=== PATIENT | male | born 1950 | race Caucasian/White ===

== ENCOUNTER 2020-09-14 05:45 | Day surgery (SDC) | payer MEDICARE ==
[~2020-09-14] VITALS: Ht 175.3 cm; Wt 80.0 kg
[~2020-09-14 05:45] MED LIST: COLCHICINE0.6 M1 PO; INDOMETHACIN75 MG PO; LISINOPRIL-HCT1 EACH PO; MAPAP500 MG PO; MITIGARE0.6 MG PO; PREDNISONE10 MG PO
--- NOTE | 2020-09-14 08:25 | NUR ---
PT ALERT, ORIENTED AND SUPPORTED BY HIS EGR. PT SEEMS INFORMED, ALL QUESTIONS ASKED ANSWERED. GER WILL REMAIN THRU SURGERY. PRAYER REQUESTED BY PT. GAVE ENCOURAGEMENT AND COMFORT. WILL FOLLOW NEEDED
--- NOTE | 2020-09-14 08:47 | NUR ---
09/14/20 0847 Elsy Da Silva 0840: PT ARRIVES TO PACU FOR RECOVERY. PT RESPONSIVE TO VERBAL AND TACTILE STIMULI. VSS, O2 >98% ON 6L OXYGEN. DENIES PAIN AND NAUSEA 0845: PT AWAKE AND ALERT, ANSWERS QUESTIONS APPROPRIATELY. VSS, RESP EVEN AND UNALBORED. OXYGEN TURNED OFF AND MASK REMOVED. O2 SATS REMAIN STABLE >98%. DENIES PAIN AND NAUSEA. COUGHS INTERMITTENTLY
--- NOTE | 2020-09-14 09:18 | NUR ---
PATIENT BACK TO DAYSURGERY ROOM, REPORT FROM JEWEL LEWIS. PATIENT AWAKE, NO PAIN OR NAUSEA. SNACKS PROVIDED. CALL LIGHT WITHIN REACH. NO OTHER NEEDS AT THIS TIME.
--- NOTE | 2020-09-14 10:33 | NUR ---
PATIENT TAKEN TO FRONT ENTRANCE FOR RIDE BY UPON DISCHARGE. PATIENT DENIES PAIN OR NAUSEA. PERIPAD CLEAN, DRY, AND INTACT. PATIENT AND VERBALIZED UNDERSTANDING OF DC INTRUCTIONS. PATIENT ENCOURAGED MORE THAN ONCE TO VOID BEFORE DISCHARGE AND REFUSED.
--- NOTE | 2020-09-18 14:31 | OR ---
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 POSTOPERATIVE DIAGNOSIS: Likely rectal carcinoma with invasion in the right anterior lateral aspect. PROCEDURES: 1. Exam under anesthesia. 2. Rigid proctoscopy. 3. Transanal debulking of low rectal villous tumor. ANESTHESIA: General endotracheal; Deisy Back CRNA and local 10 mL of 0.25% Marcaine with epinephrine. INDICATION: This 70-year-old white man, who is a patient of Dr. Justin Kay and presented to Dr. Kay with rectal bleeding. The patient had been averse to rectal examination or even colonoscopy over the many years. It had been recommended by Dr. Kay. Clinical examination showed a soft neoplasm emanating from the anal verge. A CT scan had been performed, which showed a bulky tumor of the rectum. No evidence of disease more proximally and no evidence of metastatic disease. Examination in the office setting showed a friable villous tumor, which was biopsied and pathology showed only villous adenoma. Additional biopsy in the office setting with large bulky Forceps, biopsies continued to show no sign of invasion. Clinical examination showed the neoplasm to be soft and not particularly fixed to the pelvic sidewall in any way. On the basis of this discordant finding pathologically, he underwent colonoscopy, which did not show obstruction of the rectum and passage of the scope to the cecum was clearly accomplished showing no proximal lesions. This bulky soft neoplasm was multiply biopsied as deep as possible, but pathology continued to show no sign of invasive malignancy, only carcinoma in situ. For this lesion to represent invasive rectal carcinoma, I would generally recommend neoadjuvant radiation therapy for debulking and down staging and ultimately surgical resection. The extent of the lesion is to the dentate line and quite likely this would require an abdominoperineal resection. Electronically Signed By: DAMION COTTO MD 09/18/20 1431 PATIENT NAME: JADA WEBSTER OPERATIVE REPORT DATE OF : 54 REPORT #: [id number] PHYSICIAN: DAMION COTTO MD PCP: JUSTIN KAY MD REPORT IS CONFIDENTIAL AND NOT TO BE RELEASED WITHOUT AUTHORIZATION [facility] [address], [place] [address] Signed Considering that 3 aggressive biopsies have showed no sign of invasive carcinoma and a villous adenoma with carcinoma in situ would be optimally resected. Transanally, he is here for that purpose today. The patient and his understand the risks of bleeding, infection, possibility that this does represent invasive cancer for which additional therapy as previously described would be recommended. Of note, he was found to have a preoperative hematocrit of 21 and underwent a 2 unit blood transfusion yesterday with a preoperative hematocrit now 29. FINDINGS: With good relaxation and so forth, the tumor could be more fully identified as to its general location. This was dominantly anterior and right lateral. It was not particularly circumferential, particularly the left side appeared to be spared. The extent of the tumor proximally was just below the end of my examining finger, which is about 8 cm. Debulking of the friable bulky tumor was undertaken, but quite clearly this represents an invasive cancer into the anterior and right aspect. Though not particularly fixed, there was dense firm fibrotic base to this lesion and complete extirpation was not forthcoming. Debulking has been undertaken. He does not have imminent obstruction. Referral for chemo radiation neoadjuvant therapy will be undertaken ultimately, hopefully allowing for curative resection. DESCRIPTION OF PROCEDURE: The patient was brought to the operating room, given a general endotracheal anesthetic and placed in a prone alissa-knife position with careful padding of head, neck, and other areas. Digital rectal examination showed soft and friable tumor extending to the dentate line. The dominant portion of the tumor is in the right lateral aspect. Rigid proctoscopy was undertaken, which showed the lesion to be quite bulky and quite friable. Passage beyond the mid rectum with the rigid proctoscope was not forthcoming and further attempts to do so were abandoned. A rectal retractor was placed and examination undertaken digitally, which showed friability of villous tumor anteriorly and to a small extent to the left, dominantly to the right side. Oozing of blood was quite notable with manipulation of the area and debulking with English forceps was undertaken after injecting Marcaine with epinephrine in the submucosal areas beginning at the dentate line anterior and laterally. It became clear with debulking that this represented an invasive tumor into the jany-rectal tissues and quite clearly not simply a villous adenoma with carcinoma in situ. Debulking was undertaken to a reasonable extent though there remains some tumor. Further dissection more deeply was of no benefit and was not pursued any further. Irrigation was undertaken copiously. The rectum and surrounding tissue were packed with a Gel-Foam, wrapped in bacitracin. There was no sign of ongoing bleeding. He was Electronically Signed By: DAMION COTTO MD 09/18/20 1431 PATIENT NAME: JADA WEBSTER OPERATIVE REPORT DATE OF : 54 REPORT #: [id number] PHYSICIAN: DAMION COTTO MD PCP: JUSTIN KAY MD REPORT IS CONFIDENTIAL AND NOT TO BE RELEASED WITHOUT AUTHORIZATION [facility] [address] [place] [place] [address] Signed ultimately extubated, after being returned to the supine position taken to recovery room in good condition. Blood loss was about 20 mL. Sponge, needle, and instrument count were reported as correct x3. MD GAVINO Heart/JAQUANL /[id number] cc: MD Justin Brewster MD Juno Choe, MD, PH.D. Copies: CRYSTAL BARRERA MD, JONATHAN MD CHOE, JUNO ~ Electronically Signed By: DMAION COTTO MD 09/18/20 1431 PATIENT NAME: JADA WEBSTER OPERATIVE REPORT DATE OF : 54 REPORT #: [id number] PHYSICIAN: DAMION COTTO MD PCP: JUSTIN KAY MD REPORT IS CONFIDENTIAL AND NOT TO BE RELEASED WITHOUT AUTHORIZATION
--- NOTE | 2020-09-22 11:08 | PATH ---
[facility] [address] [place], [place] [address] Signed THIS IS AN ADDENDUM REPORT SPECIMEN(S): A RECTAL TUMOR SPECIMEN SOURCE: A. RECTAL TUMOR CLINICAL HISTORY: Carcinoma in situ of rectum FINAL PATHOLOGIC DIAGNOSIS: Rectal tumor, biopsy: - Invasive rectal adenocarcinoma, moderately differentiated. - See comment. COMMENT: The vast majority of the specimen is comprised of a tubular adenoma with high-grade dysplasia. Foci of invasive carcinoma are present, demonstrating invasion into at least the lamina propria/muscularis mucosa, but tangential nature of the biopsied fragments limits interpretation. As part of [facility]' Quality Improvement Program, this case was reviewed by another member of our pathology staff. Microsatellite instability (MSI) testing by IHC will be reported in an addendum. NRT:BES:cml:C1NR MICROSCOPIC EXAMINATION: Histologic sections of all submitted blocks are examined by light microscopy. These findings, together with the gross examination, support the pathologic diagnosis. GROSS DESCRIPTION: The specimen, labeled "Jada Webster," is received in formalin and consists of 5.5 x 5.0 x 0.9 cm aggregate of deep-red soft tissue fragments. The specimen is entirely submitted in cassettes (A1-A6). FB (under the direct supervision of a pathologist) The Gross Description was prepared using a voice recognition system. The report was reviewed for accuracy; however, sound-alike word errors, addition and/or deletions may occur. If there is any question about this report, please contact Client Services. PATIENT NAME: JADA WEBSTER PATHOLOGY DATE OF : 54 REPORT #: [id number] PHYSICIAN: ROME CRAMER PCP: JUSTIN POTTER MD REPORT IS CONFIDENTIAL AND NOT TO BE RELEASED WITHOUT AUTHORIZATION [facility] [address] [place] [id number] Signed PERFORMING LABORATORY: The technical component was performed by [facility], [address] [place] [id number] (Load Checker: Iraida Crawford MD; CLIA# [id number]). [facility], [address] [address] (CLIA# [id number]). COMMENT: Tumor cells show no loss of nuclear expression of MMR proteins. This correlates with a low probability of microsatellite instability. However, if there is a high clinical suspicion for Shore syndrome (hereditary non-polyposis colorectal carcinoma syndrome) in this patient, additional testing should be considered. Please contact [facility] if such testing is indicated. NAL:cml ADDITIONAL NOTES: Immunohistochemical and/or in situ hybridization studies were performed on this case with the appropriate positive controls that react as expected. This test was developed and its performance characteristics determined by [facility]. It has not been cleared or approved by the U.S. Food and Drug Administration. The FDA has determined that such clearance or approval is not necessary. This test is used for clinical purposes. It should not be regarded as investigational or for research. [facility] is certified under the Clinical Laboratory Improvement Amendments of 1988 (CLIA) as qualified to perform high complexity clinical laboratory testing. REASON FOR ADDENDUM: To add results of additional testing. ADDENDUM PATHOLOGIC DIAGNOSIS: Invasive adenocarcinoma, rectum, microsatellite instability testing by IHC: - MLH1: Intact nuclear expression. - MSH2: Intact nuclear expression. - MSH6: Intact nuclear expression. - PMS2: Intact nuclear expression. INTERPRETATION: Normal pattern. ADDENDUM MICROSCOPIC EXAMINATION: A panel of four antibodies is selected which will detect 95% of microsatellite PATIENT NAME: JADA WEBSTER PATHOLOGY DATE OF : 54 REPORT #: [id number] PHYSICIAN: ROME PATHOLOGY PCP: JUSTIN POTTER MD REPORT IS CONFIDENTIAL AND NOT TO BE RELEASED WITHOUT AUTHORIZATION [facility] [address] [place] [id number] Signed unstable carcinomas. Testing is performed at the request of Cynthia Crowley M.D. Block: A2. Recut HE slide is prepared from the block. The presence of neoplastic glands and non-neoplastic internal control glands or stroma is confirmed. Internal control cells for MLH1, MSH2, PMS2 and MSH6 are positive. Neoplastic gland cells show the following: - MLH1: Positive. - MSH2: Positive. - MSH6: Positive. - PMS2: Positive. NAL:cml [facility] [place] [place] [facility], [address] [address] (CLIA# [id number]). Diagnostician: Cynthia Crowley MD Pathologist Electronically Signed 09/22/2020 Copies: ~ PATIENT NAME: JADA WEBSTER PATHOLOGY DATE OF : 54 REPORT #: [id number] PHYSICIAN: ROME CRAMER PCP: JUSTIN POTTER MD REPORT IS CONFIDENTIAL AND NOT TO BE RELEASED WITHOUT AUTHORIZATION
== END 2020-09-14 10:20 | disposition home or self-care (01) ==
LOC: DS 05:45
PROVIDERS: ATTEND Surgery
PROC: 0DBP8ZZ Excision of Rectum, Via Natural or Artificial Opening Endoscopic (ICD-10-PCS; principal; 2020-09-14 06:45)
DX: C20 Malignant neoplasm of rectum (principal); I10 Essential (primary) hypertension; D64.9 Anemia, unspecified; E55.9 Vitamin D deficiency, unspecified
CPT/HCPCS: 00902; 88305; 88341; 88342; J0330; J0690; J1644; J2001; J2250; J2704; J7121

== ENCOUNTER 2020-10-12 06:46 | Day surgery (SDC) | payer MEDICARE ==
[~2020-10-12] VITALS: Ht 175.3 cm; Wt 77.3 kg
--- NOTE | 2020-10-12 10:03 | NUR ---
PATIENT BACK TO ROOM APPEARS DROWSY, SATURATION 98% RA. PATIENT EATING SNACKS AND DRINKING WATER. RATES PAIN 5/10. GIRLFRIEND AT BEDSIDE. DRESSING C/D/I, SMALL AMOUNT OF RED DRAINAGE AT UNBILICUS.
--- NOTE | 2020-10-12 10:30 | NUR ---
10/12/20 1030 Juana Meeks 1021-PATIENT ARRIVED TO PACU AWAKE ON RA RR EVEN. DENIES PAIN OR NAUSEA. DRESSING TO LEFT CHEST CDI IVF INFUSING. SR. HOB ELEVATED. 1030-XRAY AT BEDSIDE
[2020-10-12] MEDS ORDERED: IBUPROFEN600 MG PO (10:33)
[2020-10-12] MEDS ORDERED: ACETAMINOPHEN500 MG PO (10:34)
[2020-10-12] MEDS ORDERED: OXYCODON-ACETA1 EAC2 PO (10:34)
--- NOTE | 2020-10-12 14:35 | NUR ---
PT HERE EARLY BEFORE CHECK IN TIME. HE SEEMS RELAXED, ALERT AND ORIENTED. ALL QUESTIONS ASKED ANSWERED. HIS GER WILL SHOE STAMPER FOLLOW ING DC. PT REQUESTED PRAYER, WILL FOLLOW
--- NOTE | 2020-10-14 12:37 | OR ---
[facility] [address] [place], [place] [address] Signed DATE OF OPERATION: 10/12/2020 SURGEON: Damion Cotto MD PREOPERATIVE DIAGNOSIS: Rectal cancer anticipating neoadjuvant chemoradiation therapy. POSTOPERATIVE DIAGNOSIS: Rectal cancer anticipating neoadjuvant chemoradiation therapy. PROCEDURES: 1. Left subclavian Port-A-Cath placement (Bard port catheter). 2. Surgeon-directed fluoroscopy. ANESTHESIA: Local with monitored anesthesia care, Gold Julian CRNA including 20 mL of 0.25% Marcaine with epinephrine. INDICATION: This is a 70-year-old white man, who is a patient of Dr. Justin Kay and has been diagnosed with rectal cancer. He is admitted to undergo Port-A-Cath device anticipating chemotherapy and pelvic radiation therapy also. He understands the risks of placement of catheter including, but not limited to, bleeding, infection, pneumothorax, dislodgement, malposition, rotation, and other unforeseen complications. He understands this and wished to proceed. Of special note, the patient requested a left subclavian approach rather than the right internal jugular approach as had been anticipated. FINDINGS: Easy access of the left subclavian vein was noted with dark nonpulsatile blood. The catheter was ultimately placed with the tip in the superior vena cava. Good function was noted once catheter was placed. DESCRIPTION OF PROCEDURE: The patient was brought to the operating room, placed in the supine position and given intravenous sedation. Preoperative antibiotic Ancef was given. Sequential compression device stockings were used and heparin subcutaneously administered. The upper torso from mandible to nipples was clipped and ultimately prepared with a chlorhexidine solution and draped sterilely. 0.25% Marcaine with epinephrine was injected in the left Electronically Signed By: DAMION COTTO MD 10/14/20 1237 PATIENT NAME: JADA WEBSTER OPERATIVE REPORT DATE OF : 54 REPORT #: [id number] PHYSICIAN: DAMION COTTO MD PCP: JUSTIN KAY MD REPORT IS CONFIDENTIAL AND NOT TO BE RELEASED WITHOUT AUTHORIZATION [facility] [address] [place], [place] [address] Signed infraclavicular space. Using a Seldinger technique, we enclosed needle and 3 mL syringe from a Bard port catheter kit. The left subclavian vein was easily accessed showing non-pulsatile dark red blood. A flexible J-wire was passed down the needle and the needle was removed. Intraoperative fluoroscopy confirmed the wire to be in the right heart system. Additional local anesthetics were injected transversely a few centimeters below the puncture site. A transverse incision was made with a #15 blade. An electrocautery used to help develop a pocket inferiorly. Blunt dissection was used. A flushed Bard port catheter port was partially secured to the pectoralis fascia with 2-0 Vicryl suture. The area from where the wire exited the infraclavicular space was incised with an #11 blade, subsequently dilator and peel-away introducer passed over the wire. The peel-away sheath introducer was allowed to remain in place and the wire and dilator removed showing vigorous nonpulsatile dark retrograde bleeding. Previously inspected Groshong-type catheter was passed down the sheath and this was passed without resistance or problem. Peel-away sheath introducer was removed stabilizing the catheter during the course of the maneuver. Aspiration with heparinized saline on the catheter showed dark nonpulsatile blood and easy flushing. The patient was taken into a neutral position from a Trendelenburg position and fluoroscopy once again undertaken. Catheter was withdrawn under fluoroscopic control to be situated in the superior vena cava. Irrigation with contrast showed good visualization of the catheter. The catheter was flushed with heparinized saline once again. A tunneling device was used to deliver the catheter to the pocket. The catheter was trimmed to appropriate length and attached to the port device and secured with the enclosed collar device per manufacture's instructions. The port was then secured to the pectoralis fascia with interrupted 2-0 Vicryl suture. Access of the catheter with an angled Rodríguez needle was undertaken showing an easy withdrawal of blood and easy flush with heparinized saline. Contrast was used to more clearly affirm the position of the catheter as well as the configuration of the catheter in relation to the port itself, which appeared to be without kink or other problem. The skin was then closed with interrupted 2-0 Vicryl, the subcutaneous layer and the running subcuticular 3-0 Vicryl for the skin. Access of the catheter once again with an angled Rodríguez needle percutaneously continued to show good withdrawal of blood and easy flushing with heparinized saline. Steri-Strips were applied to the wounds after closure including the puncture site and Electronically Signed By: DAMION COTTO MD 10/14/20 1237 PATIENT NAME: JADA WEBSTER OPERATIVE REPORT DATE OF : 54 REPORT #: [id number] PHYSICIAN: DAMION COTTO MD PCP: JUSTIN KAY MD REPORT IS CONFIDENTIAL AND NOT TO BE RELEASED WITHOUT AUTHORIZATION [address] [address] Signed the Acticoat dressing then applied. The patient was ultimately taken to recovery room in good condition and suffered no complications. Sponge, needle, and instrument counts reported as correct x3. MD GAVINO Heart/BEN /[id number] cc: MD Justin Brewster MD Juno Choe, MD, PH.D. Copies: CRYSTAL BARRERA MD, JONATHAN MD CHOE, JUNO ~ Electronically Signed By: DAMION COTTO MD 10/14/20 1237 PATIENT NAME: JADA WEBSTER OPERATIVE REPORT DATE OF : 54 REPORT #: [id number] PHYSICIAN: DAMION COTTO MD PCP: JUSTIN KAY MD REPORT IS CONFIDENTIAL AND NOT TO BE RELEASED WITHOUT AUTHORIZATION
== END 2020-10-12 11:10 | disposition home or self-care (01) ==
LOC: DS 06:46
PROVIDERS: ATTEND Surgery
PROC: B518ZZA Fluoroscopy of Superior Vena Cava, Guidance (ICD-10-PCS; principal; 2020-10-12 09:00)
PROC: 02HV33Z Insertion of Infusion Device into Superior Vena Cava, Percutaneous Approach (ICD-10-PCS; principal; 2020-10-12 09:00)
PROC: 0JH60WZ Insertion of Totally Implantable Vascular Access Device into Chest Subcutaneous Tissue and Fascia, Open Approach (ICD-10-PCS; principal; 2020-10-12 09:00)
DX: C20 Malignant neoplasm of rectum (principal); I10 Essential (primary) hypertension; M19.90 Unspecified osteoarthritis, unspecified site; Z79.899 Other long term (current) drug therapy; Z79.52 Long term (current) use of systemic steroids; Z20.822 Contact with and (suspected) exposure to COVID-19
CPT/HCPCS: 00532; 36415; 71045; 77001; 80053; 82247; 82465; 83615; 84100; 84478; 84550; 85025; C1788; J0690; J1644; J1885; J2001; J2405; J2704; J3010; J7121

== ENCOUNTER → 2021-05-03 | Day surgery (SDC) | payer MEDICARE ==
[~2021-05-03] VITALS: Ht 170.2 cm; Wt 79.0 kg
[~2021-05-03] MED LIST changes: +ACETAMINOPHEN500 MG PO; +IBUPROFEN600 MG PO; +OXYCODON-ACETA1 EAC2 PO
--- NOTE | 2021-05-03 12:03 | NUR ---
HAS RETURNED FROM ENDOSCOPY WITH ROMA LEWIS. DR LINDSEY WILL BE IN TO TALK WITH PT. NO SEDATION WILL BE DCD.
--- NOTE | 2021-05-03 12:53 | NUR ---
1230 alex to talk to pt gave dcd instructions by dr gonzales. pt dcd amb.
--- NOTE | 2021-05-03 19:28 | OR ---
[facility] [address] [place], [place] [address] Signed DATE OF OPERATION: 05/03/2021 SURGEON: Damion Cotto MD PREOPERATIVE DIAGNOSIS: History of advanced rectal adenocarcinoma status post neoadjuvant chemoradiation therapy. POSTOPERATIVE DIAGNOSIS: Persistent tumor of low rectum to the level of dentate line, but much improved. PROCEDURE: Flexible sigmoidoscopy (to 40 cm) with biopsies of rectum and rectosigmoid ANESTHESIA: None. INDICATION: This 70-year-old white man is a patient initially of Dr. Kay. He was found to have a rectal mass in August of 2020, He underwent colonoscopy and multiple biopsies by me ultimately confirming advanced rectal carcinoma penetrating into the bladder wall and prostate. He was evaluated thoroughly by Dr. Holland and Dr. Barrera and ultimately Dr. Debra De Leon at [facility] anticipating complex perineal resection after neoadjuvant chemoradiation therapy. He has no evidence of metastatic disease. He has undergone neoadjuvant chemoradiation therapy under the direction of Dr. Holland and Dr. Barrera and a flexible sigmoidoscopy was requested at this time, anticipating possible resection in the near future. Given the limited evaluation necessary, a bowel prep, but no IV sedation was recommended and the patient understands the risk of flexible sigmoidoscopy with biopsy including but not limited to bleeding, infection, perforation. FINDINGS: The prep was excellent. Complete colonoscopy was undertaken to approximately 40 cm without discomfort. The area of prior endoscopic tattooing was identified proximally. The tumor itself was easily palpable at the dentate line and although still present was vastly smaller than previously. Tumor extended from approximately 10 cm from the anal verge to the dentate line itself. Circumferential neoplasm was noted. DESCRIPTION OF PROCEDURE: The patient was brought to the endoscopy suite and placed in the lateral decubitus position. Cardiopulmonary monitoring was undertaken, but no intravenous sedation was administered. Digital rectal examination was undertaken showing neoplasia in the anal Electronically Signed By: DAMION COTTO MD 05/03/21 192 PATIENT NAME: JADA WEBSTER OPERATIVE REPORT DATE OF : 54 REPORT #: [id number] PHYSICIAN: DAMION COTTO MD PCP: CRYSTAL BARRERA MD REPORT IS CONFIDENTIAL AND NOT TO BE RELEASED WITHOUT AUTHORIZATION [facility] [address] [place], [place] [address] Signed canal more proximally and circumferential in its location. Flexible video colonoscope was passed in the anal canal and rectum identifying neoplasm obviously and beyond that without problem to the rectosigmoid and the sigmoid and to the left colon up to about 40 cm. At that point, he was having some discomfort, so no further passage of the scope was deemed necessary. The scope was withdrawn to the area of prior endoscopic tattooing, which was at about 12-14 cm. Biopsies were taken there of normal-appearing mucosa. The scope was withdrawn to approximately 8-10 cm, which was quite obviously involved with neoplasia and biopsies were obtained. Further withdrawal through the low rectum and allowed for biopsies at the dentate line which were quite obviously positive also. The scope was then removed. The patient was taken to his room anticipating prompt discharge. CONCLUSION DIAGNOSIS: Persistent neoplasia of rectum, but much improved following neoadjuvant chemoradiation therapy. PLAN: He will return to the ongoing care of Dr. Barrera and Dr. Holland and ultimately Dr. Debra De Leon at [facility] for advanced multiorgan resection. MD GAVINO Heart/JAQUANL /[id number] cc: MD Crystal Saab MD Dr. Kim Lu at [facility] Manjinder Holland MD, PH.D. Copies: JUSTIN KAY MD Electronically Signed By: DAMION COTTO MD 05/03/21 1928 PATIENT NAME: JADA WEBSTER OPERATIVE REPORT DATE OF : 54 REPORT #: [id number] PHYSICIAN: DAMION COTTO MD PCP: CRYSTAL BARRERA MD REPORT IS CONFIDENTIAL AND NOT TO BE RELEASED WITHOUT AUTHORIZATION [facility] [address] [place] [address] Signed CRYSTAL BARRERA MD, JUNO ~ Electronically Signed By: DAMION COTTO MD 05/03/21 1928 PATIENT NAME: JADA WEBSTER OPERATIVE REPORT DATE OF : 54 REPORT #: [id number] PHYSICIAN: DAMION COTTO MD PCP: CRYSTAL BARRERA MD REPORT IS CONFIDENTIAL AND NOT TO BE RELEASED WITHOUT AUTHORIZATION
--- NOTE | 2021-05-08 15:21 | PATH ---
[facility] [address] [place], [place] [address] Signed SPECIMEN(S): A COLON BIOPSY AT 12 CM SPECIMEN(S): B COLON BIOPSY AT 10 CM SPECIMEN(S): C COLON BIOPSY AT DENTATE LINE SPECIMEN SOURCE: A. COLON BIOPSY AT 12 CM B. COLON BIOPSY AT 10 CM C. COLON BIOPSY AT DENTATE LINE CLINICAL HISTORY: No preop or clinical information is given on requisition. FINAL PATHOLOGIC DIAGNOSIS: A. Colon, 12 cm, biopsy: - Colonic mucosa with focal hyperplastic changes. - Negative for dysplasia or malignancy. B. Colon, 10 cm, biopsy: - Focal residual invasive adenocarcinoma with treatment effect. C. Colon at dentate line, biopsy: - Residual invasive adenocarcinoma with treatment effect. COMMENT: As part of [facility] quality improvement program, this case was reviewed by another member of our pathology staff. Mismatch repair (MMR) testing by IHC was previously performed and reported (see [id number], 09/22/20), demonstrating a normal pattern with intact nuclear expression of MLH1, MSH2, MSH6, and PMS2. A diagnostic alert was initiated by Dr. Crowley on 05/08/21 (Dr. Sandoval's office to be called by [facility] Client Services department). NAL:cml:C1NR MICROSCOPIC EXAMINATION: Histologic sections of all submitted blocks are examined by light microscopy. These findings, together with the gross examination, support the pathologic diagnosis. GROSS DESCRIPTION: Three specimens are received in three containers, labeled "DK." A. The specimen, labeled "DK, #1," and designated on the requisition "colon biopsy at 12 cm," is received in formalin and consists of one elongated, finn soft tissue fragment that measures 0.7 cm in PATIENT NAME: JADA WEBSTER PATHOLOGY DATE OF : 54 REPORT #: [id number] PHYSICIAN: ROME PATHOLOGY PCP: CRYSTAL BARRERA MD REPORT IS CONFIDENTIAL AND NOT TO BE RELEASED WITHOUT AUTHORIZATION [facility] [address] [place], [place] [address] Signed greatest dimension. The specimen is entirely submitted in cassette (A1). B. The specimen, labeled "DK, #2 (10 cm)," and designated on the requisition "colon biopsy 10 cm," is received in formalin and consists of one finn soft tissue fragment that measures 0.5 cm in greatest dimension. The specimen is entirely submitted in cassette (B1). C. The specimen, labeled "DK, #3," and designated on the requisition "colon biopsy dentate line," is received in formalin and consists of multiple finn soft tissue fragments that measure less than 0.1 up to 0.3 cm in greatest dimension. The specimen is entirely submitted in cassette (C1). AI (under the direct supervision of a pathologist) The Gross Description was prepared using a voice recognition system. The report was reviewed for accuracy; however, sound-alike word errors, addition and/or deletions may occur. If there is any question about this report, please contact Client Services. ADDITIONAL NOTES: Immunohistochemical and/or in situ hybridization studies were performed on this case with the appropriate positive controls that react as expected. This test was developed and its performance characteristics determined by [facility]. It has not been cleared or approved by the U.S. Food and Drug Administration. The FDA has determined that such clearance or approval is not necessary. This test is used for clinical purposes. It should not be regarded as investigational or for research. [facility] is certified under the Clinical Laboratory Improvement Amendments of 1988 (CLIA) as qualified to perform high complexity clinical laboratory testing. This assay has not been validated for specimens that have been decalcified. The technical component was performed by [facility], [address] [place] [id number] (Industrial Cleaning Technician: Iraida Crawford MD; CLIA# [id number]). Professional interpretation was performed by [facility], [facility], [address] [place] [address] (CLIA# [id number]). PERFORMING LABORATORY: The technical component was performed by [facility], [address] [place] [address] (Industrial Cleaning Technician: Iraida Crawford MD; CLIA# [id number]). Professional interpretation was performed by [facility], [facility], [address] [place] [address] (CLIA# [id number]). PATIENT NAME: JADA WEBSTER PATHOLOGY DATE OF : 54 REPORT #: [id number] PHYSICIAN: ROME CRAMER PCP: CRYSTAL BARRERA MD REPORT IS CONFIDENTIAL AND NOT TO BE RELEASED WITHOUT AUTHORIZATION [facility] [address] [place] [id number] Signed Diagnostician: Cynthia Crowley MD Pathologist Electronically Signed 05/08/2021 Copies: ~ PATIENT NAME: JADA WEBSTER PATHOLOGY DATE OF : 54 REPORT #: [id number] PHYSICIAN: ROME CRAMER PCP: CRYSTAL BARRERA MD REPORT IS CONFIDENTIAL AND NOT TO BE RELEASED WITHOUT AUTHORIZATION
== END ==
LOC: OPS 11:05 → DS 13:00
PROVIDERS: ATTEND Surgery
PROC: 0DBN8ZZ Excision of Sigmoid Colon, Via Natural or Artificial Opening Endoscopic (ICD-10-PCS; 2021-05-03)
PROC: 0DBP8ZZ Excision of Rectum, Via Natural or Artificial Opening Endoscopic (ICD-10-PCS; principal; 2021-05-03 12:00)
DX: C20 Malignant neoplasm of rectum (principal); C19 Malignant neoplasm of rectosigmoid junction; I10 Essential (primary) hypertension

== ENCOUNTER 2021-08-30 05:35 | Day surgery (SDC) | payer MEDICARE ==
[~2021-08-30] VITALS: Ht 170.2 cm; Wt 84.1 kg
[~2021-08-30 05:35] MED LIST changes: +PREDNISONE20 MG PO
--- NOTE | 2021-08-30 08:50 | NUR ---
08/30/21 0850 Brina Cherry 0856 PATIENT ARRIVES TO PACU AWAKE. RESP EVEN AND UNLABORED, ROOM AIR SATS >95%. PATIENT DENIES PAIN OR NAUSEA.
[2021-08-30] MEDS ORDERED: OXYCODON-ACETA1 EAC2 PO (09:09)
[2021-08-30] MEDS ORDERED: ACETAMINOPHEN500 MG PO (09:09)
[2021-08-30] MEDS ORDERED: IBUPROFEN600 MG PO (09:09)
--- NOTE | 2021-08-30 09:59 | NUR ---
PT ALERT, ORIENTED AND HERE TO HAVE EXISTING PORTACATH REPLACED. PT SEEMS INFORMED, REQUESTED PRAYER. [place] WILL COME AT [place]. GAVE BLESSING
--- NOTE | 2021-08-30 10:27 | NUR ---
STEADY ON FEET WITH ONE PERSON STAND BY ASSIST AND CANE FOR AMBULATION TO BR. VOIDS LARGE UNMEASURED URINE. CONTINUES TO DENY NAUSEA. MEDICATED FOR INCREASING PAIN PER EMAR. PT EDUCATED ON LOCAL ANESTHETIC WEARING OFF. ASSISTED PT WITH DRESSING AND REVIEWED DISCHARGE INSTRUCTIONS WITH PT AND SON AT [place].
--- NOTE | 2021-09-02 14:20 | OR ---
[facility] [address] [place], [place] [address] Signed DATE OF OPERATION: 08/30/2021 SURGEON: Damion Cotto MD PREOPERATIVE DIAGNOSES: 1. Locally highly invasive rectal carcinoma, ongoing chemo and radiation therapy. 2. Dysfunctional left subclavian Port-A-Cath device. POSTOPERATIVE DIAGNOSES: 1. Locally highly invasive rectal carcinoma, ongoing chemo and radiation therapy. 2. Dysfunctional left subclavian Port-A-Cath device. PROCEDURE: 1. Explantation of left subclavian Port-A-Cath device. 2. Right internal jugular placement of Port-A-Cath device (Bard port catheter). 3. Ultrasound guidance for vascular access, right internal jugular vein. 4. Surgeon-directed fluoroscopy. ANESTHESIA: General LMA; Gold Julian CRNA and local 10 mL of 0.25% Marcaine with epinephrine. INDICATION: This 71-year-old white man is a patient of Vlad Kiser and was discovered to have a very advanced rectal carcinoma for which he has undergone partial excision, but additionally chemo and radiation therapy under the direction of Dr. Saenz and Dr. Barrera. Direct penetration into the prostate gland has been noted. He has been undergoing chemotherapy and radiation therapy. 5-FU infusional therapy has been mainstay of his recent therapy but he has been found to have dysfunction of the catheter for prolonged infusion. Alteplase was infused, which allowed for withdrawal of blood and infusion of chemotherapy, but in the supine position, the catheter is dysfunctional and does not allow for continuous infusion of 5-FU, which is needed on a prolonged basis. Explantation of the catheter is recommended as well as replacement with a Port-A-Cath. The risks of bleeding, infection, pneumothorax, and other unforeseen complications have been reviewed in detail. He understands and wished to proceed. FINDINGS: Explantation of left subclavian port was without problem. Complete removal of the port and the catheter was noted. There was no evidence of fibrin sheath or thrombus within the catheter or the port. There was no backbleeding from the insertion site. Closure of the wound was without problem. Electronically Signed By: DAMION COTTO MD 09/02/21 1420 PATIENT NAME: JADA WEBSTER OPERATIVE REPORT DATE OF : 54 REPORT #: [id number] PHYSICIAN: DAMION COTTO MD PCP: VLAD KISER PA-C REPORT IS CONFIDENTIAL AND NOT TO BE RELEASED WITHOUT AUTHORIZATION [facility] [address] [place] [address] Signed Easy identification of right internal jugular vein was undertaken with ultrasound guidance. Access was without problem and placement of the right internal jugular Port-A-Cath device accomplished without problem and with good function of the catheter at conclusion. A postprocedure chest x-ray is pending. DESCRIPTION OF PROCEDURE: The patient was brought to the operating room, placed in supine position with arms at the side and given a general LMA type anesthetic. Preoperative antibiotic, Ancef was given. Sequential compression device stockings were used and heparin subcutaneously administered. The upper torso was clipped and prepared with chlorhexidine solution and draped sterilely with the face turned towards the left. Examination of the left chest wall showed the incision were well healed and the port was easily identified. A few mL of 0.25% Marcaine with epinephrine was injected along the previous incision site. An incision was incised with a 15 blade. Dissection carried through the subcutaneous tissue with electrocautery. The fibrous capsule of the port was easily incised and the port identified and found to have no evidence of infection or other problem. It was easily explanted completely. The catheter fibrous track was secured with a hemostat and oversewn with 2-0 Vicryl, though there was no backbleeding. The wound was then closed with interrupted 2-0 Vicryl and a running subcuticular 3-0 Vicryl for the skin. Steri-Strips were applied and subsequently an Opsite dressing. Attention was turned towards replacement of the catheter through the right internal jugular approach. A [employer] ultrasound device was used. The patient was in mild Trendelenburg position. Examination of the right neck showed a conventional anatomy including internal jugular vein and carotid artery. Local anesthetic was injected over the right sternocleidomastoid muscle inferior to the crossing external jugular vein. Under ultrasonographic guidance, needle was passed to the internal jugular and easily accessed showing dark nonpulsatile blood. A flexible J-wire was passed down the needle and the needle was removed. Ultrasound confirmed the wire to be in the internal jugular vein. Fluoroscopy was used to confirm the wire in the right heart system. Local anesthetic was injected transversely over the right pectoral area. A transverse incision was made and electrocautery used to dissect through the subcutaneous tissue and create a pocket inferiorly. A previously inspected and irrigated Bard port device was partially secured to the pectoralis fascia. Attention was turned towards the puncture site. The wire exiting from the right neck was stabilized and the skin incised with an 11 blade. A dilator and subsequently dilator and peel-away introducer passed over the wire. The wire and dilator were removed showing vigorous retrograde nonpulsatile dark backbleeding. The previously inspected Groshong-tip catheter was passed down the introducer and the peel-away Electronically Signed By: DAMION COTTO MD 09/02/21 0738 PATIENT NAME: JADA WEBSTER OPERATIVE REPORT DATE OF : 54 REPORT #: [id number] PHYSICIAN: DAMION COTTO MD PCP: VLAD KISER PA-C REPORT IS CONFIDENTIAL AND NOT TO BE RELEASED WITHOUT AUTHORIZATION [facility] [address] [place] [address] Signed introducer removed. The patient was then placed in the neutral position. Aspiration on the catheter showed dark nonpulsatile blood and easy flushing. Under fluoroscopic guidance with a small amount of contrast, the catheter was withdrawn to the atriocaval junction. A tunneling device was used to deliver the catheter to the port site. The catheter was trimmed to the appropriate length and secured to the port device with the enclosed collar per manufacture's instructions. Using an angled Rodríguez needle through the port device, easy aspiration of blood was noted and easy flushing of heparinized saline. The port was secured to the pectoralis fascia with the previously partially placed Vicryl sutures and re-aspiration showed good function of the catheter. The port site was closed with interrupted 2-0 Vicryl and running subcuticular 3-0 Vicryl for the skin. The right neck site was secured with 3-0 Vicryl as well. Steri-Strips were applied. Additional aspiration percutaneously was undertaken confirming good function of the catheter. An Acticoat dressing was applied to the right pectoral site and Steri-Strips to the neck site. He was taken to recovery room after extubation without problem. A postprocedure chest x-ray showed good contour of the catheter and good placement of the tip in the atriocaval junction. Damion Cotto MD JM/MODL /[id number] cc: Kaleigh Saenz MD, PH.D. ADENIKE Hayes MD Copies: KALEIGH SAENZ Electronically Signed By: DAMION COTTO MD 09/02/21 1420 PATIENT NAME: JADA WEBSTER OPERATIVE REPORT DATE OF : 54 REPORT #: [id number] PHYSICIAN: DAMION COTTO MD PCP: VLAD KISER PA-C REPORT IS CONFIDENTIAL AND NOT TO BE RELEASED WITHOUT AUTHORIZATION [facility] [address] [place] [address] Signed CRYSTAL BARRERA MD ~ Electronically Signed By: DAMION COTTO MD 09/02/21 1420 PATIENT NAME: JADA WEBSTER OPERATIVE REPORT DATE OF : 54 REPORT #: [id number] PHYSICIAN: DAMION COTTO MD PCP: VLAD KISER PA-C REPORT IS CONFIDENTIAL AND NOT TO BE RELEASED WITHOUT AUTHORIZATION
== END 2021-08-30 10:20 | disposition home or self-care (01) ==
LOC: DS 05:35
PROVIDERS: ATTEND Surgery
PROC: 0JPT3XZ Removal of Tunneled Vascular Access Device from Trunk Subcutaneous Tissue and Fascia, Percutaneous Approach (ICD-10-PCS; principal; 2021-08-30 07:30)
PROC: 0JH63XZ Insertion of Tunneled Vascular Access Device into Chest Subcutaneous Tissue and Fascia, Percutaneous Approach (ICD-10-PCS; 2021-08-30 07:30)
DX: T82.594A Other mechanical complication of infusion catheter, initial encounter (principal); D01.2 Carcinoma in situ of rectum; I10 Essential (primary) hypertension; Y82.8 Other medical devices associated with adverse incidents
CPT/HCPCS: 00532; 36415; 71045; 77001; 85025; C1788; J0131; J0690; J1100; J1644; J2001; J2405; J2704; J3010; J7121

== ENCOUNTER 2022-02-21 17:47 | Emergency (ER) | payer MEDICARE ==
[~2022-02-21] VITALS: Ht 170.2 cm; Wt 78.8 kg
--- OUTSIDE RECORDS SUMMARY | 2022-02-21 17:50 | XMS ---
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 Milagros has no Care Guidelines for this patient. Yong VISIT COUNT (12 MO.) 1 JONATHAN Murillo TOTAL 1 NOTE: Visits indicate total known visits. ED/C VISIT TRACKING (12 MO.) 02/21/2022 17:47 JONATHAN Abarca OR TYPE: Emergency COMPLAINT: - RAPID HEART RATE INPATIENT VISIT TRACKING (12 MO.) No inpatient visits to display in this time frame [id number]
[2022-02-21] MEDS ORDERED: METOPROLOL SUCC25 MG PO (19:37)
--- NOTE | 2022-02-22 03:34 | EKG ---
[facility] [address] [facility] [place] [address] Signed Sinus tachycardia Marked ST abnormality, possible inferolateral subendocardial injury Abnormal ECG No previous ECGs available Confirmed by CARLOS BECK MD ([id number]) on 02/22/2022 3:34:11 AM Electronically Signed By: CARLOS BECK MD 02/22/22 0334 PATIENT NAME: JADA WEBSTER Electrocardiogram DATE OF : 54 PHYSICIAN: CARLOS BECK MD REPORT #: [id number] REPORT IS CONFIDENTIAL AND NOT TO BE RELEASED WITHOUT AUTHORIZATION
--- NOTE | 2022-02-22 03:34 | EKG ---
[facility] [address] [facility] [place] [address] Signed Normal sinus rhythm Nonspecific ST abnormality Abnormal ECG When compared with ECG of 21-FEB-2022 17:49, (Unconfirmed) Vent. rate has decreased BY [address] no longer depressed in Inferior leads ST no longer depressed in Anterolateral leads Nonspecific T wave abnormality no longer evident in Inferior leads Nonspecific T wave abnormality, improved in Lateral leads Confirmed by CARLOS BECK MD ([id number]) on 02/22/2022 3:34:23 AM Electronically Signed By: CARLOS BECK MD 02/22/22 0334 PATIENT NAME: JADA WEBSTER Electrocardiogram DATE OF : 54 PHYSICIAN: CARLOS BECK MD REPORT #: [id number] REPORT IS CONFIDENTIAL AND NOT TO BE RELEASED WITHOUT AUTHORIZATION
== END 2022-02-21 20:35 | disposition home or self-care (01) ==
LOC: ED 17:47
DX: I47.1 Supraventricular tachycardia (principal); Z87.891 Personal history of nicotine dependence
CPT/HCPCS: 36415; 71045; 80053; 83735; 84484; 85025; 93005; 93010; 96374; 96375; 99285-25; A9270; J0153; J3475; J7030

== ENCOUNTER 2022-05-22 09:14 | Emergency (ER) | payer MEDICARE ==
[~2022-05-22] VITALS: Ht 172.7 cm; Wt 78.5 kg
[~2022-05-22 09:14] MED LIST changes: +METOPROLOL SUCC25 MG PO
--- OUTSIDE RECORDS SUMMARY | 2022-05-22 09:18 | XMS ---
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 ECon VISIT COUNT (12 MO.) 2 JONATHAN Murillo TOTAL 2 NOTE: Visits indicate total known visits. ED/UCC VISIT TRACKING (12 MO.) 05/22/2022 09:15 JONATHAN Abarca OR TYPE: Emergency COMPLAINT: - RAPID HEART RATE 02/21/2022 17:47 JONATHAN Abarca OR TYPE: Emergency COMPLAINT: - RAPID HEART RATE DIAGNOSES: - Personal history of nicotine dependence - Supraventricular tachycardia - Palpitations INPATIENT VISIT TRACKING (12 MO.) No inpatient visits to display in this time frame [id number]
--- NOTE | 2022-05-22 19:23 | EKG ---
[facility] [address] [facility] [place] [address] Signed Supraventricular tachycardia Incomplete right bundle branch block Marked ST abnormality, possible lateral subendocardial injury Abnormal ECG When compared with ECG of 21-FEB-2022 18:02, Vent. rate has increased BY 79 BPM Incomplete right bundle branch block is now present ST now depressed in Inferior leads ST now depressed in Anterolateral leads Confirmed by CARLOS BECK MD ([id number]) on 05/22/2022 7:23:26 PM Electronically Signed By: CARLOS BECK MD 05/22/221922 PATIENT NAME: JADA WEBSTER Electrocardiogram DATE OF : 54 PHYSICIAN: CARLOS BECK MD REPORT #: [id number] REPORT IS CONFIDENTIAL AND NOT TO BE RELEASED WITHOUT AUTHORIZATION
--- NOTE | 2022-05-22 19:23 | EKG ---
[facility] [address] [place] [address] Signed Normal sinus rhythm Normal ECG When compared with ECG of 22-MAY-2022 09:20, (Unconfirmed) Vent. rate has decreased BY [address] no longer depressed in Inferior leads ST no longer depressed in Anterolateral leads Nonspecific T wave abnormality no longer evident in Lateral leads Confirmed by CARLOS BECK MD ([id number]) on 05/22/2022 7:23:35 PM Electronically Signed By: CARLOS BECK MD 05/22/221922 PATIENT NAME: JADA WEBSTER Electrocardiogram DATE OF : 54 PHYSICIAN: CARLOS BECK MD REPORT #: [id number] REPORT IS CONFIDENTIAL AND NOT TO BE RELEASED WITHOUT AUTHORIZATION
== END 2022-05-22 10:50 | disposition home or self-care (01) ==
LOC: ED 09:14
DX: I47.1 Supraventricular tachycardia (principal); Z87.891 Personal history of nicotine dependence
CPT/HCPCS: 36415; 80053; 93005; 93010; 96374; 99284-25; J0153

== ENCOUNTER 2025-04-07 14:41 | Emergency (ER) | payer MEDICARE ==
[~2025-04-07] VITALS: Ht 172.7 cm; Wt 82.2 kg
[2025-04-07] MEDS ORDERED: ADENOSINE 3 MG/ML VIAL ONE ×3 (15:00→15:29)
[2025-04-07 15:11] LABS: BASOPHILS 0.5 % (0.2-1.2); EOSINOPHILS 0.4 % (0.8-7.0); LYMPHOCYTES 12.8 % (21.8-53.1); MCH 29.8 PG (25.7-32.2); MCHC 32.2 g/dL (32.3-36.5); MCV 92.7 fL (79.0-92.2); MONOCYTES 8.7 % (5.3-12.2); NEUTROPHILS 77.3 % (34.0-67.9); RBC 4.39 M/uL (4.63-6.08)
[2025-04-07] MEDS ORDERED: ATORVASTATIN CA20 MG PO (15:12)
[2025-04-07] MEDS ORDERED: LISINOPRIL10 MG PO (15:12)
[2025-04-07 15:34] LABS: ALT (SGPT) 28.0 U/L (14-59); AST (SGOT) 54.0 U/L (15-37); GLOMERULAR FILTRATION RATE,EST 90.0 mL/min (>60); PROTEIN, TOTAL 8.0 g/dL (6.4-8.2); UREA NITROGEN 6.0 mg/dL (7-18)
[2025-04-07] MEDS ORDERED: ADENOSINE 3 MG/ML VIAL IV SCH ×2 (15:45→19:15)
[2025-04-07] MEDS ORDERED: SODIUM CHLORIDE 0.9% 1,000 ML IV PRN (15:45)
[2025-04-07] MEDS ORDERED: AMIODARONE/DEXTROSE 200 ML IV ONE ×2 (17:30→23:30)
[2025-04-07] MEDS ORDERED: ADENOSINE 3 MG/ML VIAL IV ONE ×2 (18:00)
[2025-04-07] MEDS ORDERED: AMIODARONE/DEXTROSE 100 ML IV ONE (18:00)
[2025-04-07] MEDS ORDERED: MAGNESIUM SULFATE 50 ML IV ONE (22:14)
[2025-04-07] MEDS ORDERED: MAGNESIUM SULFATE 20 GM/500 ML BAG IV ONE (22:15)
[2025-04-07] MEDS ORDERED: POTASSIUM CHLORIDE 10 MEQ TABCR PO ONE (22:15)
[2025-04-08 02:14] VITALS: BP 142/56
[2025-04-08] MEDS ORDERED: AMIODARONE HCL 180 MG in SODIUM CHLORIDE 0.9% 96.4 ML IV ONE (11:30)
--- NOTE | 2025-04-08 12:12 | EKG ---
[facility] [address] [facility] [place] [address] Signed Atrial flutter with 2 to 1 block Narrow QRS tachycardia Left ventricular hypertrophy with QRS widening ( R in aVL , Wilmore product ) Possible Inferior infarct , age undetermined Abnormal ECG Confirmed by Everett Erazo DO ([id number]) on 04/08/2025 12:11:51 PM Electronically Signed By: EVERETT ERAZO DO 04/08/251211 PATIENT NAME: JADA WEBSTER Electrocardiogram DATE OF : 54 PHYSICIAN: EVERETT ERAZO DO REPORT #: [id number] REPORT IS CONFIDENTIAL AND NOT TO BE RELEASED WITHOUT AUTHORIZATION
--- NOTE | 2025-04-08 12:12 | EKG ---
[facility] [address] [facility] [place] [address] Signed Normal sinus rhythm Nonspecific ST abnormality Abnormal ECG When compared with ECG of 07-APR-2025 14:57, (Unconfirmed) Sinus rhythm has replaced Wide QRS tachycardia Vent. rate has decreased BY 97 BPM Confirmed by Everett Erazo DO ([id number]) on 04/08/2025 12:11:59 PM Electronically Signed By: EVERETT ERAZO DO 04/08/25 1212 PATIENT NAME: JADA WEBSTER Electrocardiogram DATE OF : 54 PHYSICIAN: EVERETT ERAZO DO REPORT #: [id number] REPORT IS CONFIDENTIAL AND NOT TO BE RELEASED WITHOUT AUTHORIZATION
--- NOTE | 2025-04-08 12:12 | EKG ---
[facility] [address] [place] [address] Signed Normal sinus rhythm Normal ECG When compared with ECG of 07-APR-2025 15:30, (Unconfirmed) Vent. rate has decreased BY 31 BPM Confirmed by Everett Erazo DO ([id number]) on 04/08/2025 12:12:30 PM Electronically Signed By: EVERETT ERAZO DO 04/08/251211 PATIENT NAME: JADA WEBSTER Electrocardiogram DATE OF : 54 PHYSICIAN: EVERETT ERAZO DO REPORT #: [id number] REPORT IS CONFIDENTIAL AND NOT TO BE RELEASED WITHOUT AUTHORIZATION
--- NOTE | 2025-04-08 12:12 | EKG ---
[facility] [address] [facility] [place] [address] Signed Normal sinus rhythm with sinus arrhythmia Nonspecific ST abnormality Abnormal ECG When compared with ECG of 07-APR-2025 15:03, (Unconfirmed) No significant change was found Confirmed by Everett Erazo DO ([id number]) on 04/08/2025 12:12:03 PM Electronically Signed By: EVERETT ERAZO DO 04/08/251211 PATIENT NAME: JADA WEBSTER Electrocardiogram DATE OF : 54 PHYSICIAN: EVERETT ERAZO DO REPORT #: [id number] REPORT IS CONFIDENTIAL AND NOT TO BE RELEASED WITHOUT AUTHORIZATION
== END 2025-04-08 02:12 | disposition short-term general hospital (02) ==
LOC: ED 14:41
PROVIDERS: Emergency Medicine
DX: I47.10 Supraventricular tachycardia, unspecified (principal); Z87.891 Personal history of nicotine dependence
CPT/HCPCS: 36415; 71045; 80053; 83735; 85025; 93005; 93010; 96365; 96366; 96367; 96375; 96376; 99291; A9270; J0153; J0282; J3475; J7030